=== PATIENT | male | born 1965 | race Caucasian/White ===

== ENCOUNTER 2023-06-14 15:38 | Outpatient (CLI) | payer MEDICARE, SELFPAY ==
--- NOTE | 2023-06-14 14:30 | DI.RAD_ITS ---
Exam(s) XR SHOULDER RT COMPLETE 2+V EXAM: XR SHOULDER RT COMPLETE 2+V CLINICAL HISTORY: shouder pain. TECHNIQUE: 2D digital imaging was performed. Two views. COMPARISON: CR XR SHOULDER MIN 2V RT from 08/12/2022 FINDINGS: BONES: No acute fracture is present. No bony destructive lesion is seen. JOINTS: No dislocation present. Mild spurring at AC joint. Glenohumeral joint space is maintained. Minimal spurring at the glenoid. SOFT TISSUE: Calcification again noted above greater tuberosity consistent with calcific tendinosis. IMPRESSION: Calcific tendinosis and mild degenerative changes. DATA REPOSITORY: RADIATION DOSE DELIVERED:
== END 2023-06-14 15:39 | disposition home or self-care (01) ==
LOC: DIORS 15:38
PROVIDERS: PCP Physician Assistant; Referring Provider Physician Assistant; Visit Provider Student in an Organized Health Care Education/Training Program
DX: M75.31 Calcific tendinitis of right shoulder
CPT/HCPCS: 20610; 99203; 73030; J1030

== ENCOUNTER 2023-09-07 14:38 | Outpatient (CLI) | payer MEDICARE, SELFPAY ==
--- NOTE | 2023-09-07 13:45 | DI.RAD_ITS ---
Exam(s) XR SHOULDER RT COMPLETE 2+V EXAM: XR SHOULDER RT COMPLETE 2+V CLINICAL HISTORY: RIGHT SHOULDER PAIN. TECHNIQUE: 2D digital imaging was performed. Two views. COMPARISON: CR XR SHOULDER RT COMPLETE 2+V from 06/14/2023 FINDINGS: BONES: No acute fracture is present. No bony destructive lesion is seen. JOINTS: No dislocation present. Spurring projecting inferiorly at the AC joint. Glenohumeral joint space is maintained. No significant spurring. SOFT TISSUE: Large calcification again noted above the greater tuberosity consistent with calcific te ndinosis. IMPRESSION: calcific tendinosis. AC joint degenerative changes. DATA REPOSITORY: RADIATION DOSE DELIVERED:
== END 2023-09-07 14:39 | disposition home or self-care (01) ==
LOC: DIORS 14:38
PROVIDERS: PCP Physician Assistant; Referring Provider Physician Assistant; Visit Provider Student in an Organized Health Care Education/Training Program
DX: M75.31 Calcific tendinitis of right shoulder (principal)
CPT/HCPCS: 99213; 73030

== ENCOUNTER → 2023-09-22 01:59 | Outpatient (CLI) | payer MEDICARE, SELFPAY ==
--- NOTE | 2023-09-22 07:45 | DI.MRI_ITS ---
Exam(s) MR UPPER JOINT RT WO EXAM: MR UPPER JOINT RT WO CLINICAL HISTORY: ? RTC TEAR,CALCIFIC TENDINITIS, M75.31. TECHNIQUE: Multiplanar multisequence MRI was performed. COMPARISON: CR XR SHOULDER RT COMPLETE 2+V from 09/07/2023 FINDINGS: The examination is limited due to patient motion artifact. BONES: There is a large area of bone marrow edema in the greater tuberosity. T1 and T2 hypointense s ignal is seen within the supraspinatus tendon consistent with calcific tendinitis. JOINTS: There are degenerative changes seen at the acromioclavicular joint. The glenohumeral joint i s normal. TENDONS: Supraspinatus: There is supraspinatus tendinosis. No evidence of a full-thickness tear. Infraspinatus: The infraspinatus tendon is thickened with intermediate signal consistent with tendino sis. Subscapularis: The subscapularis tendon is thickened with intermediate signal consistent with tendino sis. Teres Minor: Unremarkable. Biceps and Barbeau: Unremarkable. MUSCLES: Unremarkable. GLENOID LABRUM: Unremarkable on this noncontrast examination. SOFT TISSUES: Unremarkable. LIGAMENTS: Unremarkable. OTHER: There is a small amount of fluid in the subacromial subdeltoid bursa. IMPRESSION: 1. Calcific tendinitis of the supraspinatus tendon. No evidence of a full-thickness tear. 2. Tendinosis involving the infraspinatus and subscapularis tendons. 3. Degenerative changes seen at the acromioclavicular joint. 4. Marrow edema seen in the lateral aspect of the humeral head without definite fracture. 5. Mild subacromial subdeltoid bursitis. DATA REPOSITORY:
== END ==
PROVIDERS: PCP Physician Assistant; Visit Provider Student in an Organized Health Care Education/Training Program
DX: M75.31 Calcific tendinitis of right shoulder (principal); M19.011 Primary osteoarthritis, right shoulder; M75.51 Bursitis of right shoulder
CPT/HCPCS: 73221

== ENCOUNTER → 2023-10-05 10:02 | Outpatient (BNVA) | payer MEDICARE, SELFPAY | PROVIDERS: PCP Physician Assistant; Referring Provider Physician Assistant; Visit Provider Student in an Organized Health Care Education/Training Program | DX: M75.31 Calcific tendinitis of right shoulder (principal) | CPT/HCPCS: 99213 ==